=== PATIENT | female | born 1970 | race Caucasian/White ===

== ENCOUNTER 2022-05-06 14:44 | Emergency (ER) | payer OTHER ==
[~2022-05-06] VITALS: Ht 170.2 cm; Wt 113.6 kg
[~2022-05-06 14:44] MED LIST: DIAZ10TA3; DULO20CA; ESOM40CA39; FERR324T11; FOLI1TAB51 PO; HYDR-2595; PREG100C; TOPI25TA43
[2022-05-06] MEDS ORDERED: MORPHINE SULFATE INJ 2 MG/ml SYRG IM ONE (15:45)
[2022-05-06] MEDS ORDERED: PROMETHAZINE HCL 25 MG/ML 1ML IM ONE (15:45)
[2022-05-06 16:55] VITALS: BP 127/68
[2022-05-06] MEDS ORDERED: PRED20TA2 PO (16:59)
== END 2022-05-06 17:06 | disposition home or self-care (01) ==
LOC: ER 14:49
DX: M54.59 Other low back pain (principal); G89.29 Other chronic pain; J45.909 Unspecified asthma, uncomplicated; I10 Essential (primary) hypertension; Z88.2 Allergy status to sulfonamides; Z88.0 Allergy status to penicillin; Z88.8 Allergy status to other drugs, medicaments and biological substances; Z79.899 Other long term (current) drug therapy; Z98.890 Other specified postprocedural states
CPT/HCPCS: 96372; 99285; J2270; J2550

== ENCOUNTER 2022-08-09 11:34 | Emergency (ER) | payer OTHER ==
[~2022-08-09] VITALS: Ht 170.2 cm; Wt 120.7 kg
[~2022-08-09 11:34] MED LIST changes: +PRED20TA2 PO
[2022-08-09 16:24] VITALS: BP 154/82
== END 2022-08-09 16:26 | disposition home or self-care (01) ==
LOC: ER 11:34
DX: S93.402A Sprain of unspecified ligament of left ankle, initial encounter (principal); S00.81XA Abrasion of other part of head, initial encounter; S80.212A Abrasion, left knee, initial encounter; S80.211A Abrasion, right knee, initial encounter; M54.2 Cervicalgia; Z88.0 Allergy status to penicillin; Z88.2 Allergy status to sulfonamides; X50.1XXA Overexertion from prolonged static or awkward postures, initial encounter; Y93.89 Activity, other specified; Y92.89 Other specified places as the place of occurrence of the external cause; Y99.8 Other external cause status
CPT/HCPCS: 70450; 72125; 73610